=== PATIENT | male | born 1965 | race Asian ===

== ENCOUNTER 2017-02-08 18:18 | Emergency (ER) | payer BC ==
[2017-02-08 20:20] LABS: ALB/GLOB RATIO 1.3 (1.0-1.8); ALKALINE PHOSPHATASE 65 U/L (34-104); ANION GAP 8.2 (7.0-16.0); BILIRUBIN,TOTAL 0.5 mg/dL (0.3-1.0); BUN - UREA NITROGEN 17 mg/dL (7-25); BUN/CREATININE RATIO 18.9; CALCIUM SERUM 9.5 mg/dL (8.6-10.3); CHLORIDE 101 mEq/L (98-107); CREATININE - SERUM 0.9 mg/dL (0.7-1.3); GLUCOSE 101 mg/dL (70-105); POTASSIUM SERUM 3.2 mEq/L (3.5-5.1); SGOT 20 U/L (13-39); SGPT/ALT 32 U/L (7-52); SODIUM SERUM 133 mEq/L (136-145)
[2017-02-08 20:32] LABS: % BASOPHILS 0.9 % (0.0-2.0); % LYMPHOCYTES 26.8 % (20.0-50.0); % MONOCYTES 10.6 % (2.0-10.0); % NEUTROPHILS 59.7 % (40.0-80.0); HEMATOCRIT 44.6 % (41.0-60); HEMOGLOBIN 14.7 gm/dL (12-16); MEAN CELL VOLUME 92.1 fl (80-99); MEAN CORPUSCULAR HEMOGLOBIN 30.3 pg (26.0-30.0); MEAN CORPUSCULAR HGB CONC 32.9 pg (28.0-36.0); MEAN PLATELET VOLUME 8.1 fl; NEUTROPHILE ABSOLUTE 3.4 Th/cmm (1.8-8.0); PLATELET COUNT 190 Th/cmm (150-400); RED BLOOD COUNT 4.84 Mil/cmm (4.30-5.70); RED CELL DISTRIBUTION WIDTH 12.4 % (11.5-20.0); WHITE BLOOD COUNT 5.7 Th/cmm (4.8-10.8)
[2017-02-08 20:33] LABS: URINE BILIRUBIN NEGATIVE (NEGATIVE); URINE BLOOD NEGATIVE (NEGATIVE); URINE GLUCOSE (UA) NEGATIVE (NEGATIVE); URINE KETONE NEGATIVE (NEGATIVE); URINE PROTEIN NEGATIVE (NEGATIVE); URINE UROBILINOGEN 0.2 E.U./dL (0.2 - 1.0)
[2017-02-08 20:38] LABS: URINE COLOR YELLOW
[2017-02-08 20:39] LABS: URINE BACTERIA NONE SEEN /hpf (NONE SEEN); URINE EPITHELIAL CELLS NONE SEEN /lpf (FEW); URINE RBC NONE SEEN /hpf (0-5); URINE WBC NONE SEEN /hpf (0-5)
[2017-02-08] MEDS ORDERED: Potassium Chloride 20 mEq ER Tab PO ONE (20:45)
[2017-02-08] MEDS: Potassium Chloride 20 mEq ER Tab PO ONE (20:49)
[2017-02-08] MEDS: Sodium Chloride 0.9% 500 ML IV ONE (20:53)
--- NOTE | 2017-02-08 23:47 | ER Physician Documentation ---
DATE OF SERVICE: HISTORY OF PRESENT ILLNESS: The patient wants to go home. He is a 51-year-old male patient. The patient's urine examination is completely clear. Clear urine, leukocyte esterase is negative, nitrate is negative. The patient's sodium is 133, potassium is 3.2. We gave him 40 potassium by mouth. The patient does not want any IV fluids to be given to him. PSA has gone out, so we do not have any PSA results available. Albumin is 4.5, globulin is 3.5. Liver function tests appears to be within normal limits. The patient will be sent home on Cipro 500 mg twice a day for 7 days and I will give the patient some Mycolog cream for the fungus infection in the butt area and Cipro 500 mg twice a day, Flomax 0.4 mg once a day at night time. He needs to eat some yogurt and he needs to eat some probiotic over the counter. Medication and all instructions were given. All answers were given to the patient. He does not have any more questions and he wants to go home. So we will send him home and so we do not find any acute evidence of infection, but probably the patient has an enlarged prostate that is giving rise to his symptoms of difficulty in urination as if he has to force the urine out and the urine is difficulty in voiding, so BPH is one of the diagnosis and other diagnosis probably is the patient may be having a urinary tract infection also. JOB# [id number]
--- NOTE | 2017-02-08 23:51 | ER Physician Documentation ---
DATE OF SERVICE: 02/08/2017 HISTORY OF PRESENT ILLNESS: A 51-year-old [place] male patient who came to [facility] 21 years ago. His date of is 1965. No known allergies. He is a full code patient. His body surface area is 2.04 square meter. His weight is 88.451 kilograms. The patient's chief complaint is difficulty in voiding and more looks like he has urinary retention, I need to force himself to go and this is going on for the past 1 week. At least he is denying that is recorded in the past, but the way he is expressing it is possible that he may be having the symptoms for a little longer time than what he is mentioning right now. The patient this morning started having some chills and some low-grade fever. He is not feeling good. He did not shave himself. He never had any explanation or anybody checked his prostate to see. He also complained of having blisters and rash in the butt area which I examined. To me it looks like a fungal infection, so we will give him some Mycolog cream to be applied at that area when he is going home at that time. The patient has no other medical complaints. He has no discharge from the ureter. No history of any gonorrhea. No history of syphilis. No history of lymphogranuloma of venereum. No history of any sexually transmitted diseases. Nobody has checked his PSA level in the past. He has a primary physician, but he will go and see the physician as soon as he can. He waited that this should go away. REVIEW OF SYSTEMS: Eyes: No history of double vision, blurring, blindness. Central nervous system: No history of TIA, stroke, encephalitis, meningitis. No history of any head injury. No history of any trauma. No history of any sutures, subdural hematoma, etc. No history of any depression, anxiety, suicidal tendencies, psychiatric problems, etc. Pulmonary: History of asthma for past many years, but he uses some medication that is soothing him and that he takes occasionally only. He used to be a smoker. He smoked from the age of 16 until the age of 45, 46 or so, somewhere around 27 years he smoked 3-5 sticks a day, he does not drink alcohol. He does not use any drugs, etc. Endocrine, no history of any diabetes mellitus, hypo or hyperthyroidism, pheochromocytoma. Heart stoll, the patient has hypertension history, but denied any renal involvement, but we will check it out. He has no history of any hypertensive heart disease. No history of any angina pectoris, myocardial infarction, rheumatic fever, valvular heart disease, pericardial disease or cardiac arrhythmias. Endocrine stoll, no history of diabetes, hypo or hyperthyroidism, pheochromocytoma, Miguelina syndrome, etc. Genitourinary stoll as I mentioned earlier holds true. The patient never had urinary retention. The patient never needed to come to the Emergency Room for urinary retention and of catheter placement and drainage. He never had any surgery for genitourinary system. As far as surgical condition is concerned, the patient did have four years ago laparoscopic cholecystectomy done. Past history is otherwise benign and negative. PERSONAL HISTORY: He is for the second time in the rastafarian. He has one child from the first . From the second , he has no children. ALLERGIES: None known. PHYSICAL EXAMINATION: VITAL SIGNS: Done in the Emergency Room, the triage nurse before I came took the vital signs showing temperature of 98.6, pulse of 74, respirations 16, blood pressure 162/99. I told Kaitlyn, the nurse to take the blood pressure again because it might be a white collar, it might be or he might not have taken his medication that he might need so we will recheck the blood pressure. His height is 5 feet 9 inches, weighing 198 pounds. GENERAL: Appears to be adequately built and nourished, not in any acute cardiorespiratory distress. HEENT: Conjunctivae are pink. Sclerae white. He has not shaved himself. No meningeal signs. No edema. No cyanosis, no petechiae, no ecchymosis. No evidence of any cardiorespiratory distress. No evidence of any meningeal signs. CHEST: Clear. NECK: Trachea being central. Evidence of slight emphysematous chest wall, slightly increased AP diameter of the chest. LUNGS: Reveal fairly decent air entry present in both lungs without any rales, rhonchi, or bronchial breathing. There is no evidence of any deformity of the chest wall, other than slightly emphysematous chest wall and AP diameter is increased secondary to chronic smoking, but he is not definitely a COPD patient at the present moment. HEART: Reveals normal heart sounds. PMI is located in the fifth intercostal space midclavicular line. No thrills, no bruits are heard over the carotid arteries. Heart sounds are normal. Soft fourth heart sounds is heard, third heart sound is absent. Soft systolic murmur, grade 1/6 audible at the left sternal border. Second heart sound physiologically split. No diastolic murmur. No pericardial rub. No other pathological murmur or rub audible. ABDOMEN: Soft, somewhat protuberant, obese. Belly without any tenderness, guarding or rigidity. No tenderness noted in the suprapubic area, especially noting that he might be having some urinary tract infection secondary to possible prostate enlargement and then climbing up and giving rise to UTI. Liver and spleen are not enlarged. No free fluid in the abdominal cavity. No ascites is present. No evidence of any venous distention over the abdomen. Central nervous system is within normal limits. Genitourinary; otherwise there is no discharge from the urethra. Examination of the rectum and perianal area, in the back the patient has a rash. This is most suggestive of fungus infection. The patient was advised to wash his underwear and cloths with warm water twice a day, to change her clothes and to see his own physician, uses , one tube might be needed, maybe 2 depends and if it does not go away to see his own physician also and take his opinion if needed Dermatology, then his physician might advise him. He needs to see a urologist to see if there is any enlarged prostate because he might need a rectal examination, etc. His other systems findings are within normal limits. There is no edema. No evidence of any congestive heart failure noted. PAST SURGICAL HISTORY: Includes history of laparoscopic surgery for gallbladder surgery as I mentioned earlier. He has hypertension for which he takes 50 mg of losartan once a day plus he has asthma. In conclusion, the patient presented with burning, frequency, somewhat distention of and trying to force urination, probably secondary to benign prostatic hypertrophy along with urinary tract infection, which might be secondary to enlarged prostate, so we will check his PSA level. Even it is normal, he would not need a urological examination to be done. DIAGNOSES: Urinary tract infection, cystitis and patient has most likely enlarged prostate. Other diagnoses include hypertension, history of laparoscopic surgery of the gallbladder removed about 4 years ago and history of bronchial asthma. PLAN: To get some baseline blood workup done, CBC, CMP and PSA level to be done. The patient was given one tablet of 500 mg Cipro after the urine was collected for routine examination and culture and once we get the report, we will send the patient home on antibiotics and Mycolog cream for the back perianal area where he has looks like a rash from fungal infection. Another diagnosis is past, hypertension, cholecystectomy by laparoscopic surgery and bronchial asthma. Elio, my friend, the nurse who helped me, was with me while I examined the patient. JOB# [id number]
== END 2017-02-08 21:15 | disposition home or self-care (01) ==
LOC: ER 18:18
DX: N39.0 Urinary tract infection, site not specified (principal); I10 Essential (primary) hypertension
CPT/HCPCS: 36415-UA; 80053-TC; 81001-TC; 83735-TC; 84153-90; 85025-TC; 87086-90; 93005; J7040; Z7610